=== PATIENT | female | born 2000 | race Caucasian/White ===

== ENCOUNTER 2023-07-17 22:22 | Emergency (ER) | payer OTHER, SELFPAY ==
[2023-07-17 22:25] VITALS: BP 116/84
[2023-07-17 23:06] VITALS: BMI 25.6
--- NOTE | 2023-07-17 23:26 | ED.GENMED ---
History of Present Illness
General
Chief Complaint: BURN-MINOR
Source: patient
Exam Limitations: none
Time Seen by Provider: 07/17/23 22:41
Nursing documentation reviewed up to this point in time: agreed with
Travel History
Have you had any contact with someone who has COVID-19?: No
Do you have any symptoms of coronavirus? Fever > 100 degrees, chills, cough, shortness of breath, sore throat, loss of taste or smell, muscle aches, or headache?: No
History of Present Illness
History of Present Illness:
Patient is a 23-year-old female who was working and spilled hot water on her right foot. She complains of small amount of redness and blister to the area. She has not taken anything for pain but does not feel that she needs anything currently.
She denies any other injuries. She denies any other amezcua to her body. She was wearing a sock and shoe at that time.
Past History
Past History
ED Past Medical History: Psychiatric
ED Past Surgical History: None
Social History
Tobacco: Non-smoker
Alcohol: None
Personal: Single
Living: with family
Employment: Student
Family History
Family History: Other (Noncontributory)
Review of Systems
Review of Systems
Allergies reviewed?: Yes
All Other Systems: ROS reviewed and negative except as documented in HPI and ROS
Constitutional: Reports no symptoms; Denies fever, fatigue or chills
Skin: Reports other (burn to right foot )
Psychiatric: Reports no symptoms
Phy Exam
General Physical Exam
General Presentation: no apparent distress
General age: appears stated age
General Skin: warm and dry
General Habitus: normal
General Mental: alert
Neurological Exam
Neurological Exam: alert and oriented x3
Musculoskeletal Exam
Musculoskeletal Exam: other (Right lower extremity strong pulses small area of erythema to dorsal foot with 2 small blisters less than 1 cm; area of erythema is approximately 3 -4 cm)
Skin Exam
Skin Exam: normal color and warm/dry
Psychiatric Exam
Psychiatric Exam: normal mood/affect
Course
Vital Signs
Initial and Last Documented VS:
Initial Vital Signs
Temp Pulse Resp BP Pulse Ox
97.8 F 70 18 116/84 98
07/17/23 22:25 07/17/23 22:25 07/17/23 22:25 07/17/23 22:25 07/17/23 22:25
Last Documented Vital Signs
Temp Pulse Resp BP Pulse Ox
97.8 F 70 18 116/84 98
07/17/23 22:25 07/17/23 22:25 07/17/23 22:25 07/17/23 22:25 07/17/23 22:25
MDM/Problems Addressed
Differential Diagnosis Includes:
not limited to: burn
MDM/Problems Addressed:
Symptoms are consistent with first-degree second-degree burn right small amount of erythema with 2 small blisters. Patient believes her tetanus is up-to-date will DC with follow-up with work health discussed wound care and instructed to return if
any worsening of symptoms such as signs of infection
*Pulse Oximetry
Patient hypoxic: no
*Critical Care Note
Total Time (30-74mins, 75-104mins- exclusive of procedures): Not Applicable
ED Attending Note
-
Portions of this chart may have been created with voice recognition software.� Occasional wrong word or��sound alike� substitutions may have occurred due to the inherent limitations of voice recognition software.
Discharge Plan
Departure
Patient Disposition: Home (Routine Discharge)
Date of Disposition: 07/17/23
Time of Disposition: 23:29
Patient with high blood pressure during this ER visit?: No
Discharge Problem:
Burn
Instructions: Skin Amezcua (DC)
Prescriptions:
No Action
No Current Medications
0
Referrals:
Tanner Heredia DO [Family Provider] -
Activity Restrictions/Additional Instructions:
Wash twice a day with soap and water apply small layer of antibiotic ointment to the area. Follow-up with [employer]. in the next several days as discussed. Return if any worsening of symptoms if signs infection redness drainage swelling red
streaks fever chills increased pain. You may take ibuprofen or Tylenol if needed. Cool moist compress to affected area for discomfort.
Interventions
Interventions:
*Risk Screen - Suicide Last Done: 07/17/23 22:25
*General Assessment Last Done: 07/17/23 23:02
*Neglect/Abuse Screening Last Done: 07/17/23 22:25
ED- Fall Risk Assessment Last Done: 07/17/23 23:02
*ED COVID-19 Vaccine History Last Done: 07/17/23 23:02
ED-Skin Assessment Last Done: 07/17/23 23:02
== END 2023-07-17 23:40 | disposition home or self-care (01) ==
LOC: EMR 22:22
PROVIDERS: EMERGENCY PHYSICIAN Emergency Medicine; FAMILY PHYSICIAN Family Medicine
DX: T25.221A Burn of second degree of right foot, initial encounter (principal); X11.8XXA Contact with other hot tap-water, initial encounter; Y93.89 Activity, other specified; Y92.89 Other specified places as the place of occurrence of the external cause; Y99.0 Civilian activity done for income or pay
CPT/HCPCS: 99282

== ENCOUNTER 2024-04-17 05:23 | Emergency (ER) | payer OTHER, SELFPAY ==
[2024-04-17 05:25] VITALS: BP 132/76
--- NOTE | 2024-04-17 06:27 | ED.GENMED ---
History of Present Illness
General
Chief Complaint: Skin Problem
Time Seen by Provider: 04/17/24 06:06
History of Present Illness
History of Present Illness:
24-year-old female without significant past medical history presenting for concern of right fifth finger infection. Patient reports about 12 hours ago she pulled a hangnail, and has since had swelling, pain. She was concerned that it is infected
so came to the hospital. Denies fever. Reports some tingling, denies numbness. Does report that she bites her fingernails. Denies issues with range of motion. Denies additional acute medical complaints.
Past History
Past History
ED Past Medical History: Psychiatric
ED Past Surgical History: None
Social History
Tobacco: Non-smoker
Alcohol: None
Personal: Single
Living: with family
Employment: Student
Family History
Family History: Other (Noncontributory)
Phy Exam
Physical Exam
Physical Exam:
General: Well-appearing, no clinical signs of dehydration, nontoxic and in no acute distress
HEENT: protecting airway
Neck: appears supple
CV: Normal heart rate
Resp: No accessory muscle use, no increased work of breathing
Abd: No distention
Extremities: Mild swelling at the distal right fifth digit at the DIP. No evidence of paronychia. Mild erythema. Range of motion intact
Neuro: alert, no focal neurologic deficit
: deferred
Rectal: deferred
Psych: Normal affect
Skin: Intact
Course
Orders/Labs/Results
Orders:
Orders
04/17/24 06:26
Cephalexin Monohydrate [Keflex] 500 mg PO NOW STA
Vital Signs
Initial and Last Documented VS:
Initial Vital Signs
Temp Pulse Resp BP Pulse Ox
97.8 F 60 22 132/76 100
04/17/24 05:25 04/17/24 05:25 04/17/24 05:25 04/17/24 05:25 04/17/24 05:25
Last Documented Vital Signs
Temp Pulse Resp BP Pulse Ox
97.8 F 60 22 132/76 100
04/17/24 05:25 04/17/24 05:25 04/17/24 05:25 04/17/24 05:25 04/17/24 05:25
MDM/Problems Addressed
MDM/Problems Addressed:
24-year-old female presenting with concern of right fifth finger swelling and pain. Vital signs on arrival are normal.
On exam patient is well-appearing, no acute distress or discomfort. Overall benign examination of the right fifth digit. No neurovascular compromise. Mild swelling and erythema. Nailbed is intact with. Suspect mild soft tissue section. No
signs concerning for tenosynovitis. No indication for incision and drainage. No evidence of felon. Feel stable for discharge, however will start on an antibiotic. Patient started on Keflex. Return precautions discussed and patient verbalized
understanding
*Critical Care Note
Total Time (30-74mins, 75-104mins- exclusive of procedures): Not Applicable
ED Attending Note
-
Portions of this chart may have been created with voice recognition software.� Occasional wrong word or��sound alike� substitutions may have occurred due to the inherent limitations of voice recognition software.
Discharge Plan
Departure
Patient Disposition: Home (Routine Discharge)
Date of Disposition: 04/17/24
Time of Disposition: 06:31
Patient with high blood pressure during this ER visit?: No
Condition: Good
Discharge Problem:
Localized swelling of finger of right hand
Instructions: Wound Care (DC), [facility]
Prescriptions:
New
cephalexin 500 mg capsule
500 mg PO TID 5 Days Qty: 15 0RF
Activity Restrictions/Additional Instructions:
You were seen in the emergency department for swelling to your right fifth finger
You were found to have concern of infection to your finger. You were started on antibiotics
Please follow-up closely with your primary care physician.
Return to the emergency department for any worsening of your symptoms including worsening swelling of your finger with accumulation of pus, or any difficulty moving your finger with associated numbness, or any development of chest pain, difficulty
breathing, abdominal pain with persistent vomiting and inability to tolerate food or liquid by mouth (concern for dehydration), weakness, headache or confusion, fever greater than 100.4, or any additional symptoms that are concerning to you.
Thank you for choosing [facility].
Interventions
Interventions:
*Risk Screen - Suicide Last Done: 04/17/24 05:25
*General Assessment Last Done: 04/17/24 06:26
*Neglect/Abuse Screening Last Done: 04/17/24 05:25
ED- Fall Risk Assessment Last Done: 04/17/24 06:26
*ED COVID-19 Vaccine History Last Done: 04/17/24 06:26
ED-Skin Assessment Last Done: 04/17/24 06:26
Discharge Date and Time
Print Language: CENTRAL AFRICAN
[2024-04-17] MEDS: KEFLEX 500 MG PO (06:41)
== END 2024-04-17 06:40 | disposition home or self-care (01) ==
LOC: EMR 05:23
PROVIDERS: EMERGENCY PHYSICIAN Student in an Organized Health Care Education/Training Program; FAMILY PHYSICIAN Family Medicine
DX: R22.31 Localized swelling, mass and lump, right upper limb (principal)
CPT/HCPCS: 99283